=== PATIENT | female | born 1945 ===

== ENCOUNTER 2019-09-16 10:11 | Emergency (ER) | payer OTHER ==
[~2019-09-16] VITALS: Ht 149.9 cm; Wt 37.2 kg
[2019-09-16] MEDS ORDERED: ALENDRONATE SOD70 MG (10:29)
[2019-09-16] MEDS ORDERED: CARBIDOPA-LEVO1 EAC3 (10:30)
[2019-09-16] MEDS ORDERED: ISOPTIN SR120 MG (10:31)
[2019-09-16] MEDS ORDERED: CALTRATE 600+D1 EAC1 (10:32)
[2019-09-16] MEDS ORDERED: LODINE XL400 MG (10:33)
== END 2019-09-16 17:33 | disposition home or self-care (01) ==
LOC: ER 10:11
DX: R53.1 Weakness (principal); R63.0 Anorexia; G20 Parkinson's disease; Z03.818 Encounter for observation for suspected exposure to other biological agents ruled out

== ENCOUNTER 2020-04-30 04:09 | Emergency (ER) | payer OTHER ==
[~2020-04-30] VITALS: Ht 149.9 cm; Wt 38.6 kg
[~2020-04-30 04:09] MED LIST: ALENDRONATE SOD70 MG; CALTRATE 600+D1 EAC1; CARBIDOPA-LEVO1 EAC3; ISOPTIN SR120 MG; LODINE XL400 MG
[2020-04-30] MEDS ORDERED: ATIVAN0.5 M1 (04:36)
[2020-04-30] MEDS ORDERED: DOLOGESIC-DF 51 EACH PO (07:25)
== END 2020-04-30 07:35 | disposition home or self-care (01) ==
LOC: ER 04:09
DX: S00.83XA Contusion of other part of head, initial encounter (principal); W06.XXXA Fall from bed, initial encounter; Y93.89 Activity, other specified; Y92.092 Bedroom in other non-institutional residence as the place of occurrence of the external cause; Y99.8 Other external cause status